=== PATIENT | male | born 1995 | race Two or more races ===

== ENCOUNTER 2017-03-21 23:11 | Emergency (ER) | payer OTHER ==
--- NOTE | 2017-03-22 02:35 | ED ---
Upper Extremity Pain - HPI Summary HPI Summary: 22M presents with left middle finger injury s/p jamming it. He was playing basketball when he hyperextend it. He has full ROM with pain. He denies any numbness or tingling. he took ibuprofen for pain. He is right handed. - History of Current Complaint Chief Complaint: EDExtremityLower Stated Complaint: LEFT MIDDLE FINGER PAIN Time Seen by Provider: 03/22/17 02:08 - Allergies/Home Medications Allergies/Adverse Reactions: Allergies Allergy/AdvReac Type Severity Reaction Status Date / Time No Known Allergies Allergy Verified 03/22/17 02:16 PMH/Surg Hx/FS Hx/Imm Hx Endocrine/Hematology History: Denies: Hx Anticoagulant Therapy Respiratory History: Denies: Hx Asthma Infectious Disease History: No Infectious Disease History: Denies: Traveled Outside the [place] in Last 30 Days - Family History Known Family History: Negative: Respiratory Disease - Social History Alcohol Use: Occasionally Substance Use Type: Reports: None Smoking Status (MU): Never Smoked Tobacco Review of Systems Negative: Fever Negative: Chest Pain Negative: Shortness Of Breath Positive: Myalgia - left middle finger All Other Systems Reviewed And Are Negative: Yes Physical Exam Triage Information Reviewed: Yes Vital Signs On Initial Exam: Initial Vitals Temp Pulse Resp BP Pulse Ox 98 F 73 18 134/84 99 03/21/17 23:14 03/21/17 23:14 03/21/17 23:14 03/21/17 23:14 03/21/17 23:14 Vital Signs Reviewed: Yes Appearance: Positive: Well-Appearing Skin: Positive: Warm, Dry Head/Face: Positive: Normal Head/Face Inspection Eyes: Positive: Normal, Conjunctiva Clear Respiratory/Lung Sounds: Positive: Clear to Auscultation, Breath Sounds Present Cardiovascular: Positive: Normal, RRR Musculoskeletal: Positive: Strength/ROM Intact - left middle finger with pain, Other - good pulses, capillary refill<2 secs - Renaldo Coma Scale Coma Scale Total: 15 Procedures - Splinting Location: finger Pre-Made Type: metal Pre-Proc Neuro Vasc Exam: normal Diagnostics - Vital Signs Vital Signs Temp Pulse Resp BP Pulse Ox 03/22/17 02:00 98.4 F 68 16 133/81 99 03/21/17 23:14 98 F 73 18 134/84 99 - Laboratory Lab Statement: Any lab studies that have been ordered have been reviewed, and results considered in the medical decision making process. Course/Dx - Course Course Of Treatment: 22M presents with left middle finger injury s/p jamming it. He was playing basketball when he hyperextend it. He has full ROM with pain. He denies any numbness or tingling. he took ibuprofen for pain. He is right handed. xray normal. placed in finger splint. patient understands and agrees with plan - Diagnoses Differential Diagnosis/HQI/PQRI: Positive: Fracture (Closed), Strain, Sprain Provider Diagnoses: Injury of left middle finger Discharge - Discharge Plan Condition: Good Disposition: HOME Patient Education Materials: Jammed Finger (ED) Referrals: Non Staff,Doctor [Primary Care Provider] - Additional Instructions: Keep finger in splint for couple days until feels better Take tyenlol or ibuprofen for pain every 6 hours Return to ED if develop any new or worsening symptoms
[2017-03-22 03:17] VITALS: BP 123/70
--- NOTE | 2017-03-22 07:40 | RAD ---
HISTORY: Injury, third digit of left hand COMPARISONS: None VIEWS: 3, Frontal, lateral, and oblique views of the third digit of the left hand FINDINGS: BONE DENSITY: Normal. BONES: On the lateral view, there is a faint linear lucency along the volar aspect of the middle phalanx suggestive of a nondisplaced fracture JOINTS: There is no arthropathy. ALIGNMENT: There is no dislocation. SOFT TISSUES: Unremarkable. OTHER FINDINGS: None. IMPRESSION: PROBABLE NONDISPLACED FRACTURE OF THE VOLAR ASPECT OF THE BASE OF THE MIDDLE PHALANX OF THE THIRD DIGIT. RECOMMEND CORRELATION WITH SITE OF PAIN.
== END 2017-03-22 03:10 | disposition home or self-care (01) ==
LOC: ED 23:11
DX: S69.82XA Other specified injuries of left wrist, hand and finger(s), initial encounter (principal); W23.0XXA Caught, crushed, jammed, or pinched between moving objects, initial encounter; Y93.67 Activity, basketball; Y92.9 Unspecified place or not applicable
CPT/HCPCS: 73140; 99282